=== PATIENT | female | born 1970 | race African-American/Black ===

== ENCOUNTER 2017-03-05 18:28 | Emergency (ER) | payer SELFPAY ==
[2017-03-05 19:00] LABS: #Basophils 0.1 thou/uL (0.0-0.2); #Eosinphils 0.2 thou/uL (0.0-0.7); #Lymphocytes 2.5 thou/uL (1.20-3.40); #Monocytes 0.5 thou/uL (0.11-0.59); #Neutrophils 4.2 thou/uL (1.40-6.50); %Basophils 1.6 % (0.0-1.0); %Eosinophils 3.2 % (0.0-10.0); %Monocytes 7.2 % (0.0-10.0); %Neutrophils 54.9 % (42.0-75.0); Hemoglobin 12.6 g/dL (12.0-16.0); Mean Corpuscular Hemoglobin 29.8 pg (27.0-31.0); Mean Corpuscular Volume 85.1 fl (81.0-99.0); Mean Platelet Volume 6.7 fL (7.4-10.4); Platelet Count 384 thou/uL (130-400); RBC Distribution Width 13.9 % (11.5-14.5); Red Blood Cell (RBC) Count 4.24 mill/uL (4.20-5.40); White Blood Cell (WBC) Count 7.6 thou/uL (4.8-10.8)
[2017-03-05 19:08] LABS: Bilirubin Negative (Negative); Blood, Urine Negative (Negative); Clarity CLEAR (Clear); Glucose, Urine (Dipstick) Negative (Negative); Leukocyte Negative (Negative); Nitrite Negative (Negative); Protein, Urine (Dipstick) Negative (Neg-Trace); Specific Gravity, Urine 1.016 (1.002-1.036); Urobilinogen 0.2 mg/dL (0.2-1.0); pH, Urine 7.5 (5.0-9.0)
[2017-03-05 19:22] LABS: ALT (SGPT) 14 U/L (8-55); AST (SGOT) 12 U/L (5-34); Alkaline Phosphatase 87 U/L (40-150); Anion Gap 12 mmol/L (10-20); BUN (Urea Nitrogen) 14 mg/dL (7.0-18.7); Bilirubin, Total 0.2 mg/dL (0.2-1.2); Calc. Creatinine Clearance 0 mL/min (70-130); Calcium 9.6 mg/dL (7.8-10.44); Carbon Dioxide 24 mmol/L (22-29); Chloride 104 mmol/L (98-107); Estimated GFR-MDRD Greater than 90; Globulin 3.4 g/dL (2.4-3.5); Glucose 93 mg/dL (70-105); Potassium 3.6 mmol/L (3.5-5.1); Protein, Total 7.4 g/dL (6.0-8.3); Sodium 136 mmol/L (136-145)
--- NOTE | 2017-03-06 08:40 | CT ---
PRELIMINARY REPORT/[facility]/EMERGENCY AFTER HOURS PROCEDURE: EXAM: CT Abdomen and Pelvis Without Intravenous Contrast EXAM DATE/TIME: Exam ordered 03/06/2017 12:13 AM CLINICAL HISTORY: 46 years old, female; Pain; Abdominal pain; Generalized TECHNIQUE: Axial computed tomography images of the abdomen and pelvis without intravenous contrast. Coronal reformatted images were created and reviewed. COMPARISON: No relevant prior studies available. FINDINGS: Lower thorax: No acute findings. ABDOMEN: Liver: Unremarkable. Gallbladder and bile ducts: Unremarkable. No calcified stones. No ductal dilation. Pancreas: Unremarkable. No ductal dilation. Spleen: Unremarkable. No splenomegaly. Adrenals: Small left adrenal adenoma. Kidneys and ureters: Nonobstructing stones in the kidneys bilaterally. Stomach and bowel: Unremarkable. No obstruction. No mucosal thickening. Appendix: Normal appendix. PELVIS: Bladder: Unremarkable. No stones. Reproductive: 2 cm right ovarian dominant follicle/cyst. Prior hysterectomy. ABDOMEN and PELVIS: Intraperitoneal space: Mildly increased attenuation of the mesentery near its root with pseudocapsule and small associated mesenteric lymph nodes, consistent with mesenteric panniculitis. No free air. N o significant fluid collection. Bones/joints: No acute fracture. No dislocation. Soft tissues: Unremarkable. Vasculature: Unremarkable. No abdominal aortic aneurysm. Lymph nodes: See above. IMPRESSION: 1. 2 cm right ovarian dominant follicle/cyst. 2. Mesenteric panniculitis. Thank you for allowing us to participate in the care of your patient. Dictated and Authenticated by: Fredy Krishnamurthy MD 03/06/2017 12:41 AM Central Time ([place] & [place]) FINAL REPORT NONCONTRAST ABDOMEN AND PELVIS CT: FINDINGS/IMPRESSION: I agree with the preliminary interpretation provided above. Punctate nonobstructing right nephrolithiasis. There is focal rounded calcific density of the parenc hyma of the lower pole left kidney incompletely characterized. Haziness of the central mesentery, nonspecific. There are increased in number, although not signific antly enlarged, lymph nodes in this region. Findings may be on the basis of mesenteric adenitis. Le ft lung productive process is not entirely excluded. Correlate clinically and, as necessary, imaging followup may be obtained. Cyst of the right adnexa incompletely assessed which may be assessed with dedicated pelvic ultrasound . For the above-described indeterminate hyperdensity of the lower pole left renal parenchyma, consider dedicated followup CT or MRI using multiphase contrast technique to further characterize. Advanced for age atherosclerosis. CODE T POS: CHUCK
== END 2017-03-06 01:24 | disposition home or self-care (01) ==
LOC: ERS 18:28
DX: K65.4 Sclerosing mesenteritis (principal); I10 Essential (primary) hypertension; F17.210 Nicotine dependence, cigarettes, uncomplicated
CPT/HCPCS: 36415; 74176; 80053; 81003; 85025

== ENCOUNTER 2019-05-08 11:12 | Emergency (ER) | payer SELFPAY ==
[2019-05-08 13:19] LABS: #Eosinphils 0.1 thou/uL (0.0-0.7); #Lymphocytes 2.2 thou/uL (1.20-3.40); #Monocytes 0.6 thou/uL (0.11-0.59); #Neutrophils 3.5 thou/uL (1.40-6.50); %Basophils 0.8 % (0.0-1.0); %Eosinophils 1.5 % (0.0-10.0); %Lymphocytes 34.5 % (21.0-51.0); %Monocytes 8.9 % (0.0-10.0); %Neutrophils 54.4 % (42.0-75.0); Hemoglobin 11.9 g/dL (12.0-16.0); Mean Corpuscular HGB CONC 33.7 g/dL (32.0-36.0); Mean Corpuscular Hemoglobin 28.2 pg (27.0-31.0); Mean Corpuscular Volume 83.8 fL (78.0-98.0); Platelet Count 359 thou/uL (130-400); RBC Distribution Width 14.5 % (11.5-14.5); Red Blood Cell (RBC) Count 4.23 mill/uL (4.20-5.40); White Blood Cell (WBC) Count 6.4 thou/uL (4.8-10.8)
[2019-05-08 13:50] LABS: ALT (SGPT) 24 U/L (8-55); AST (SGOT) 14 U/L (5-34); Albumin 4.3 g/dL (3.5-5.0); Alkaline Phosphatase 95 U/L (40-110); Anion Gap 13 mmol/L (10-20); BUN (Urea Nitrogen) 12 mg/dL (7.0-18.7); Bilirubin, Total 0.2 mg/dL (0.2-1.2); Calc. Creatinine Clearance 0 mL/min (70-130); Calcium 9.4 mg/dL (7.8-10.44); Carbon Dioxide 25 mmol/L (22-29); Chloride 103 mmol/L (98-107); Estimated GFR-MDRD Greater than 90; Globulin 3.3 g/dL (2.4-3.5); Glucose 85 mg/dL (70-105); Potassium 3.8 mmol/L (3.5-5.1); Protein, Total 7.6 g/dL (6.0-8.3); Sodium 137 mmol/L (136-145)
--- NOTE | 2019-05-08 14:34 | ULT ---
Left UPPER EXTREMITY VENOUS DOPPLER ULTRASOUND: HISTORY: Left arm pain TECHNIQUE: Grayscale color-flow and spectral Doppler imaging of the deep venous systems of the left upper extrem ity was performed. FINDINGS: There is good flow, compression and normal spectral waveforms in the internal jugular, subclavian, ax illary, brachial, radial, ulnar, basilic and cephalic veins in the left upper extremity.. IMPRESSION: No evidence of DVT in the left upper extremity.
--- NOTE | 2019-05-08 15:09 | ULT ---
US Breast Limited Lt History: Mass Comparison: None. Findings: In the left breast at the area of palpation 1:00 is a linear tubular structure suggesting a vein. Superficial to these dilated veins is no flow within what appears to be possibly aerospace medicine physician vein thrombosis. Impression: Findings of possible aerospace medicine physician vein thrombosis. In a patient that has a palpable abnormality, diagnostic ultrasound and mammogram are recommended.
== END 2019-05-08 15:54 | disposition home or self-care (01) ==
LOC: ERS 11:12
DX: I80.8 Phlebitis and thrombophlebitis of other sites (principal); I10 Essential (primary) hypertension; F17.210 Nicotine dependence, cigarettes, uncomplicated; Z79.899 Other long term (current) drug therapy
CPT/HCPCS: 36415; 80053; 85025; 93005

== ENCOUNTER 2021-09-12 00:54 | Emergency (ER) | payer OTHER, SELFPAY | END 2021-09-12 01:41 | disposition home or self-care (01) | LOC: ERS 00:54 | DX: B34.9 Viral infection, unspecified (principal); I10 Essential (primary) hypertension; F17.210 Nicotine dependence, cigarettes, uncomplicated; Z20.822 Contact with and (suspected) exposure to COVID-19; Z79.899 Other long term (current) drug therapy | CPT/HCPCS: 99284; U0003; U0005 ==

== ENCOUNTER 2021-11-04 09:20 | Emergency (ER) | payer OTHER ==
[2021-11-04] MEDS ORDERED: Ketorolac Tromethamine 30 MG/ML VIAL ONE (10:22)
== END 2021-11-04 13:12 | disposition home or self-care (01) ==
LOC: ERS 09:20
DX: J02.0 Streptococcal pharyngitis (principal); I10 Essential (primary) hypertension; F17.210 Nicotine dependence, cigarettes, uncomplicated
CPT/HCPCS: 87430; 96372; 99283; J1885

== ENCOUNTER 2022-10-24 14:35 | Emergency (ER) | payer OTHER | END 2022-10-24 15:10 | disposition home or self-care (01) | LOC: ERS 14:35 | DX: U07.1 COVID-19 (principal); I10 Essential (primary) hypertension; E78.5 Hyperlipidemia, unspecified; F17.210 Nicotine dependence, cigarettes, uncomplicated | CPT/HCPCS: 99283 ==